=== PATIENT | male | born 1965 | race African-American/Black ===

== ENCOUNTER 2021-12-15 04:58 | Inpatient (IN) ==
[2021-12-15] MEDS: ALBUTEROL/IPRATROPIUM 3 ML NEB RESP TX SCH ×4 (02:05→22:47)
[2021-12-15] MEDS ORDERED: guaiFENesin/DM ER 600-30 MG TABLET PO PRN (08:52)
[2021-12-15] MEDS ORDERED: LACTULOSE 20 GM/30 ML UDCUP PO PRN (08:52)
[2021-12-15] MEDS ORDERED: ONDANSETRON 4 MG/2 ML VIAL IV PRN (08:52)
[2021-12-15] MEDS ORDERED: DOCUSATE SODIUM 100 MG CAPSULE PO PRN (08:52)
[2021-12-15] MEDS ORDERED: hydrALAZINE 20 MG/1 ML VIAL IV PRN (08:52)
[2021-12-15] MEDS ORDERED: ALUMINUM/MAGNES/SIMETH MAX STR 30 ML UDCUP PO PRN (08:52)
[2021-12-15] MEDS ORDERED: ACETAMINOPHEN 325 MG TABLET PO PRN (08:52)
[2021-12-15 09:25] LABS: Basophils % 0.2 % (0.0-0.8); Hematocrit 48.7 VOL% (42.0-52.0); Hemoglobin 15.9 GM/DL (14.0-18.0); Immature Granulocytes % 0.4 %; Immature Granulocytes Absolute 0.04 #; Lymphocytes # 0.4 10*3/uL (1.4-4.0); Lymphocytes % 4.3 % (21.2-54.2); Mean Corpuscular HGB Conc 32.6 GM/DL (32-36); Mean Corpuscular Volume 95.3 FL (87-102); Mean Platelet Volume 12.5 FL (9.6-12.0); Monocytes # 0.6 10*3/uL (0.11-0.8); Monocytes % 6.5 % (1.7-12.7); Neutrophils % 88.6 % (38.7-73.9); Platelet Count 136 T/CUMM (130-400); Red Blood Count 5.11 MC/CUMM (3.8-5.5); Red Cell Distribution Width 13.9 % (9.3-17.3); White Blood Count 9.8 T/CUMM (4-12)
[2021-12-15 09:48] LABS: Band Neutrophils 1 % (0-10); Eosinophils 1 % (0-10); Lymphocytes 6 % (20-55); Total Cells Counted 100
[2021-12-15 10:01] LABS: Alanine Aminotransferase 39 U/L (16-61); Albumin 3.9 G/DL (3.4-5.0); Alkaline Phosphatase 48 U/L (45-117); Aspartate Amino Transferase 116 U/L (0-37); Bilirubin,Total < 0.39 MG/DL (0.20-1.00); Blood Urea Nitrogen 16 MG/DL (7-18); Calcium 8.4 MG/DL (8.5-10.1); Carbon Dioxide 25 MMOL/L (21-32); Chloride 107 MMOL/L (98-107); Glucose 180 MG/DL (74-106); Osmolality,Calculated 284.4 MOS/KG (273-304); Potassium 4.6 MMOL/L (3.5-5.1); Sodium 140 MMOL/L (136-145); Total Protein 7.9 G/DL (6.4-8.2)
[2021-12-15 10:01] LABS: Arterial Base Excess iSTAT 2 MMOL/L (-2.5-2.5); Arterial Bicarbonate iSTAT 29.8 MMOL/L (20-26); Arterial O2 Saturation iSTAT 90 % (95-100); Arterial PCO2 iSTAT 58 MM HG (35-48); Arterial PO2 iSTAT 64 MM HG (80-95); Arterial Total CO2 iSTAT 32 MMO/L (23-27); Arterial pH iSTAT 7.317 (7.35-7.45)
[2021-12-15 10:08] LABS: Thyroid Stimulating Hormone 1.17 uIU/ml (0.358-3.74)
[2021-12-15] MEDS: methylPREDNISolone SOD SUC 40 MG/1 ML VIAL IV SCH ×2 (10:52→21:03)
[2021-12-15] MEDS: ENOXAPARIN 40 MG/0.4 ML SYRINGE SUBCUT SCH (11:02)
[2021-12-15] MEDS: PANTOPRAZOLE 40 MG TABLET PO SCH (11:02)
[2021-12-15] MEDS ORDERED: IBUPROFEN 400 MG TABLET PO PRN (15:32)
[2021-12-15] MEDS ORDERED: FUROSEMIDE 40 MG/4 ML VIAL IV ONE (16:30)
[2021-12-15] MEDS ORDERED: DEXTROSE 10% 250 ML BAG IV PRN (16:39)
[2021-12-15] MEDS ORDERED: GLUCAGON 1 MG VIAL IM PRN (16:39)
[2021-12-15] MEDS: carvediloL 6.25 MG TABLET PO SCH (17:58)
[2021-12-15 18:15] LABS: Arterial Base Excess iSTAT 3 MMOL/L (-2.5-2.5); Arterial Bicarbonate iSTAT 31.7 MMOL/L (20-26); Arterial O2 Saturation iSTAT 100 % (95-100); Arterial PCO2 iSTAT 63 MM HG (35-48); Arterial PO2 iSTAT 274 MM HG (80-95); Arterial Total CO2 iSTAT 34 MMO/L (23-27); Arterial pH iSTAT 7.307 (7.35-7.45)
[2021-12-15] MEDS: CETIRIZINE 10 MG TABLET PO SCH (20:26)
[2021-12-15] MEDS: OSELTAMIVIR 75 MG CAPSULE PO SCH (20:26)
[2021-12-15] MEDS: INSULIN LISPRO 100 UNIT/ML SUBCUT SCH (20:26)
[2021-12-15] MEDS: ROSUVASTATIN 20 MG TABLET PO SCH (20:26)
[2021-12-15] MEDS: COLCHICINE 0.6 MG CAPSULE PO SCH (20:26)
[2021-12-15] MEDS: lisinopriL 20 MG TABLET PO SCH (20:26)
[2021-12-15] MEDS: ASPIRIN 325 MG TABLET PO SCH (20:26)
[2021-12-15] MEDS ORDERED: amLODIPine 10 MG TABLET PO SCH (21:00)
[2021-12-16] MEDS: ALBUTEROL/IPRATROPIUM 3 ML NEB RESP TX SCH ×5 (02:30→23:30)
[2021-12-16 04:02] LABS: Arterial Base Excess iSTAT 2 MMOL/L (-2.5-2.5); Arterial Bicarbonate iSTAT 29.8 MMOL/L (20-26); Arterial O2 Saturation iSTAT 96 % (95-100); Arterial PCO2 iSTAT 56 MM HG (35-48); Arterial PO2 iSTAT 88 MM HG (80-95); Arterial Total CO2 iSTAT 32 MMO/L (23-27); Arterial pH iSTAT 7.332 (7.35-7.45)
[2021-12-16 04:55] LABS: Hematocrit 48.5 VOL% (42.0-52.0); Hemoglobin 15.8 GM/DL (14.0-18.0); Immature Granulocytes % 0.4 %; Immature Granulocytes Absolute 0.03 #; Lymphocytes # 0.5 10*3/uL (1.4-4.0); Lymphocytes % 6.6 % (21.2-54.2); Mean Corpuscular HGB Conc 32.6 GM/DL (32-36); Mean Corpuscular Volume 95.7 FL (87-102); Mean Platelet Volume 12.3 FL (9.6-12.0); Monocytes # 0.9 10*3/uL (0.11-0.8); Platelet Count 143 T/CUMM (130-400); Red Blood Count 5.07 MC/CUMM (3.8-5.5); Red Cell Distribution Width 14.1 % (9.3-17.3); White Blood Count 8.2 T/CUMM (4-12)
[2021-12-16 05:18] LABS: Alanine Aminotransferase 37 U/L (16-61); Albumin 3.4 G/DL (3.4-5.0); Alkaline Phosphatase 40 U/L (45-117); Aspartate Amino Transferase 73 U/L (0-37); Bilirubin,Total < 0.39 MG/DL (0.20-1.00); Blood Urea Nitrogen 29 MG/DL (7-18); Calcium 8.9 MG/DL (8.5-10.1); Carbon Dioxide 28 MMOL/L (21-32); Chloride 107 MMOL/L (98-107); Cholesterol 342 MG/DL (50-200); Glucose 142 MG/DL (74-106); HDL Cholesterol 24 MG/DL (40-60); Osmolality,Calculated 284.5 MOS/KG (273-304); Potassium 4.6 MMOL/L (3.5-5.1); Risk Ratio 14.25; Sodium 139 MMOL/L (136-145); Total Protein 7.5 G/DL (6.4-8.2); Triglycerides 202 MG/DL (2-150); VLDL Cholesterol 40.4 MG/DL
[2021-12-16 05:31] LABS: Osmolality,Calculated 284.5 MOS/KG (273-304); Potassium 4.6 MMOL/L (3.5-5.1)
[2021-12-16] MEDS: INSULIN LISPRO 100 UNIT/ML SUBCUT SCH ×4 (09:28→20:51)
[2021-12-16] MEDS: OSELTAMIVIR 75 MG CAPSULE PO SCH ×2 (09:37→20:54)
[2021-12-16] MEDS: PANTOPRAZOLE 40 MG TABLET PO SCH (09:37)
[2021-12-16] MEDS: carvediloL 6.25 MG TABLET PO SCH ×2 (09:37→17:19)
[2021-12-16] MEDS: COLCHICINE 0.6 MG CAPSULE PO SCH ×2 (09:37→20:54)
[2021-12-16] MEDS: methylPREDNISolone SOD SUC 40 MG/1 ML VIAL IV SCH ×2 (09:37→21:00)
[2021-12-16] MEDS: LEVOFLOXACIN 750 MG TABLET PO SCH (11:31)
[2021-12-16] MEDS: ENOXAPARIN 40 MG/0.4 ML SYRINGE SUBCUT SCH (11:31)
[2021-12-16] MEDS ORDERED: SODIUM CHLORIDE 0.45% 1,000 ML IV SCH (12:00)
[2021-12-16] MEDS: CETIRIZINE 10 MG TABLET PO SCH (20:55)
[2021-12-16] MEDS: ROSUVASTATIN 20 MG TABLET PO SCH (20:55)
[2021-12-16] MEDS: lisinopriL 20 MG TABLET PO SCH (20:55)
[2021-12-16] MEDS: ASPIRIN 325 MG TABLET PO SCH (20:55)
[2021-12-17] MEDS: ALBUTEROL/IPRATROPIUM 3 ML NEB RESP TX SCH ×7 (00:11→23:54)
[2021-12-17 04:35] LABS: Basophils % 0.1 % (0.0-0.8); Hematocrit 47.6 VOL% (42.0-52.0); Hemoglobin 15.2 GM/DL (14.0-18.0); Immature Granulocytes % 0.3 %; Immature Granulocytes Absolute 0.03 #; Lymphocytes # 0.6 10*3/uL (1.4-4.0); Lymphocytes % 5.7 % (21.2-54.2); Mean Corpuscular HGB Conc 31.9 GM/DL (32-36); Mean Corpuscular Volume 97.1 FL (87-102); Mean Platelet Volume 12.3 FL (9.6-12.0); Monocytes # 0.6 10*3/uL (0.11-0.8); Monocytes % 6.3 % (1.7-12.7); Neutrophils % 87.6 % (38.7-73.9); Platelet Count 147 T/CUMM (130-400); Red Cell Distribution Width 13.9 % (9.3-17.3); White Blood Count 10.2 T/CUMM (4-12)
[2021-12-17 04:53] LABS: Calcium 9.1 MG/DL (8.5-10.1); Osmolality,Calculated 291.1 MOS/KG (273-304); Potassium 4.8 MMOL/L (3.5-5.1)
[2021-12-17] MEDS: LEVOFLOXACIN 750 MG TABLET PO SCH (08:52)
[2021-12-17] MEDS: PANTOPRAZOLE 40 MG TABLET PO SCH (08:52)
[2021-12-17] MEDS: COLCHICINE 0.6 MG CAPSULE PO SCH ×2 (08:52→21:20)
[2021-12-17] MEDS: carvediloL 6.25 MG TABLET PO SCH ×2 (08:52→18:20)
[2021-12-17] MEDS: OSELTAMIVIR 75 MG CAPSULE PO SCH ×2 (08:54→21:20)
[2021-12-17] MEDS: methylPREDNISolone SOD SUC 40 MG/1 ML VIAL IV SCH ×2 (09:00→21:48)
[2021-12-17] MEDS: INSULIN LISPRO 100 UNIT/ML SUBCUT SCH ×3 (13:40→21:37)
[2021-12-17] MEDS: ENOXAPARIN 40 MG/0.4 ML SYRINGE SUBCUT SCH (13:41)
[2021-12-17] MEDS: CETIRIZINE 10 MG TABLET PO SCH (21:20)
[2021-12-17] MEDS: lisinopriL 20 MG TABLET PO SCH (21:20)
[2021-12-17] MEDS: ASPIRIN 325 MG TABLET PO SCH (21:20)
[2021-12-17] MEDS: ROSUVASTATIN 20 MG TABLET PO SCH (21:20)
[2021-12-18] MEDS: ALBUTEROL/IPRATROPIUM 3 ML NEB RESP TX SCH ×4 (02:10→11:00)
[2021-12-18 05:45] LABS: Basophils % 0.1 % (0.0-0.8); Hemoglobin 15.5 GM/DL (14.0-18.0); Immature Granulocytes % 0.3 %; Immature Granulocytes Absolute 0.02 #; Lymphocytes # 0.7 10*3/uL (1.4-4.0); Lymphocytes % 9.3 % (21.2-54.2); Mean Corpuscular HGB Conc 32.3 GM/DL (32-36); Mean Corpuscular Volume 96.8 FL (87-102); Mean Platelet Volume 12.7 FL (9.6-12.0); Monocytes # 0.6 10*3/uL (0.11-0.8); Monocytes % 7.9 % (1.7-12.7); Neutrophils % 82.4 % (38.7-73.9); Platelet Count 144 T/CUMM (130-400); Red Blood Count 4.96 MC/CUMM (3.8-5.5); Red Cell Distribution Width 13.7 % (9.3-17.3); White Blood Count 7.6 T/CUMM (4-12)
[2021-12-18 05:59] LABS: Calcium 9.2 MG/DL (8.5-10.1); Potassium 4.5 MMOL/L (3.5-5.1)
[2021-12-18] MEDS: COLCHICINE 0.6 MG CAPSULE PO SCH (09:16)
[2021-12-18] MEDS: PANTOPRAZOLE 40 MG TABLET PO SCH (09:17)
[2021-12-18] MEDS: carvediloL 6.25 MG TABLET PO SCH (09:17)
[2021-12-18] MEDS: methylPREDNISolone SOD SUC 40 MG/1 ML VIAL IV SCH (09:18)
[2021-12-18] MEDS: OSELTAMIVIR 75 MG CAPSULE PO SCH (09:24)
[2021-12-18] MEDS: INSULIN LISPRO 100 UNIT/ML SUBCUT SCH ×2 (09:24→12:42)
[2021-12-18] MEDS: LEVOFLOXACIN 750 MG TABLET PO SCH (09:24)
[2021-12-18] MEDS: ENOXAPARIN 40 MG/0.4 ML SYRINGE SUBCUT SCH (10:27)
[2021-12-18 12:34] VITALS: BP 170/87
== END 2021-12-18 14:48 | disposition home health service (06) | DRG 280 ==
LOC: N.TELEN 08:41 → SUATTDRO 08:41 → N.ICU 17:21 → N.TELEN 12-17 20:17
PROVIDERS: ADMIT Internal Medicine; ATTEND Internal Medicine